=== PATIENT | female | born 1995 | race African-American/Black ===

== ENCOUNTER 2017-03-05 08:52 | Emergency (ER) | payer MEDICAID ==
[2010-11-18 09:21] VITALS: BMI 27.3
[2017-03-05 09:19] LABS: BASOPHILS 0.1 % (0.0-2.0); EOSINOPHILS 1.2 % (0-7); HEMATOCRIT 36.1 % (36.0-48.0); HEMOGLOBIN 11.5 g/dL (12-16); IMMATURE GRANULOCYTES 0.2 % (0-5); LYMPHOCYTES 19.5 % (15-50); MCH 28.8 pg (26.0-34.0); MCHC 31.9 g/dL (31.0-37.0); MCV 90.3 fL (80.0-100.0); MEAN PLATELET VOLUME 10.7 fL (7.4-10.4); MONOCYTES 8.7 % (2-11); NEUTROPHILS 70.3 % (40-80); RDW 12.2 % (11.5-14.5); WBC 8.4 10x3/uL (4.8-10.8)
[2017-03-05 09:21] LABS: PLATELET COUNT 253 10x3/uL (130-400)
[2017-03-05 09:36] LABS: HCG SERUM POSITIVE (NEGATIVE)
[2017-03-05 09:48] LABS: ALBUMIN 3.6 g/dL (3.4-5.0); ALKALINE PHOSPHATASE 70 U/L (46-116); ALT (SGPT) 16 U/L (10-68); CALC OSMOLALITY 269 mosm/kg (275-300); CALCIUM 9.1 mg/dL (8.5-10.1); CARBON DIOXIDE 23.3 mmol/L (21.0-32.0); CHLORIDE - SERUM 102 mmol/L (98-107); CREATININE - SERUM 0.5 mg/dL (0.6-1.3); GLUCOSE 91 mg/dL (74-106); POTASSIUM - SERUM 3.8 mmol/L (3.5-5.1); PROTEIN - SERUM 7.4 g/dL (6.4-8.2); SODIUM 136 mmol/L (136-145); UREA NITROGEN 6 mg/dL (7-18); eGFR NON AFRICAN AMERICAN > 90 mL/min (90-120)
[2017-03-05 10:02] LABS: APPEARANCE TURBID (CLEAR); COLOR RED (YELLOW); GLUCOSE NEGATIVE (NEGATIVE); KETONE NEGATIVE (NEGATIVE); LEUKOCYTE ESTERASE 1+ (NEGATIVE); PROTEIN 1+ mg/dL (NEGATIVE); SPECIFIC GRAVITY 1.005 (1.005-1.020); UROBILINOGEN NORMAL (NORMAL)
[2017-03-05 10:05] LABS: BILIRUBIN NEGATIVE (NEGATIVE); NITRITE NEGATIVE (NEGATIVE)
[2017-03-05 10:08] LABS: RED CELLS - URINE >50 /hpf (0-5)
[2017-03-05 10:09] LABS: BACTERIA MODERATE /hpf (NONE SEEN)
== END 2017-03-05 12:00 | disposition home or self-care (01) ==
LOC: D.ER 08:52
PROVIDERS: Emergency Medicine
DX: O20.9 Hemorrhage in early pregnancy, unspecified (principal); Z3A.01 Less than 8 weeks gestation of pregnancy

== ENCOUNTER 2017-04-10 12:19 | Emergency (ER) | payer MEDICAID ==
[2010-11-18 09:21] VITALS: BMI 27.3
[2017-04-10 12:45] LABS: BASOPHILS 0.1 % (0-2); EOSINOPHILS 0.6 % (0-7); HEMATOCRIT 35.8 % (36.0-48.0); HEMOGLOBIN 11.3 g/dL (12-16); IMMATURE GRANULOCYTES 0.2 % (0-5); LYMPHOCYTES 16.3 % (15-50); MCHC 31.6 g/dL (31.0-37.0); MCV 91.8 fL (80.0-100.0); MEAN PLATELET VOLUME 10.8 fL (7.4-10.4); MONOCYTES 7.2 % (2-11); NEUTROPHILS 75.6 % (40-80); PLATELET COUNT 258 10x3/uL (130-400); RDW 12.4 % (11.5-14.5); WBC 10.1 10x3/uL (4.8-10.8)
[2017-04-10 13:08] LABS: ALBUMIN 3.7 g/dL (3.4-5.0); ALKALINE PHOSPHATASE 67 U/L (46-116); ALT (SGPT) 15 U/L (10-68); BILIRUBIN - TOTAL 0.57 mg/dL (0.2-1.3); CALC OSMOLALITY 263 mosm/kg (275-300); CALCIUM 9.3 mg/dL (8.5-10.1); CARBON DIOXIDE 23.3 mmol/L (21.0-32.0); CHLORIDE - SERUM 102 mmol/L (98-107); CREATININE - SERUM 0.5 mg/dL (0.6-1.3); GLUCOSE 78 mg/dL (74-106); POTASSIUM - SERUM 3.7 mmol/L (3.5-5.1); PROTEIN - SERUM 7.4 g/dL (6.4-8.2); SODIUM 134 mmol/L (136-145); UREA NITROGEN 5 mg/dL (7-18); eGFR NON AFRICAN AMERICAN > 90 mL/min (90-120)
[2017-04-10 13:09] LABS: HCG SERUM POSITIVE (NEGATIVE)
[2017-04-10 13:22] LABS: APPEARANCE HAZY (CLEAR); BACTERIA MODERATE /hpf (NONE SEEN); BILIRUBIN NEGATIVE (NEGATIVE); COLOR YELLOW (YELLOW); GLUCOSE NEGATIVE (NEGATIVE); KETONE NEGATIVE (NEGATIVE); LEUKOCYTE ESTERASE 1+ (NEGATIVE); MUCUS <1+ /lpf (NONE SEEN); NITRITE NEGATIVE (NEGATIVE); PROTEIN NEGATIVE (NEGATIVE); RED CELLS - URINE OCC /hpf (0-5)
== END 2017-04-10 15:17 | disposition home or self-care (01) ==
LOC: D.ER 12:19
PROVIDERS: Emergency Medicine
DX: O23.41 Unspecified infection of urinary tract in pregnancy, first trimester (principal); R10.9 Unspecified abdominal pain

== ENCOUNTER 2017-05-16 09:09 | Emergency (ER) | payer MEDICAID ==
[2010-11-18 09:21] VITALS: BMI 27.3
[2017-05-16 09:57] LABS: BASOPHILS 0 % (0-2); HEMATOCRIT 32.7 % (36.0-48.0); HEMOGLOBIN 10.5 g/dL (12-16); IMMATURE GRANULOCYTES 0.3 % (0-5); MCH 29.7 pg (26.0-34.0); MCHC 32.1 g/dL (31.0-37.0); MCV 92.6 fL (80.0-100.0); MONOCYTES 7.7 % (2-11); PLATELET COUNT 204 10x3/uL (130-400); RBC 3.53 10x6/uL (4.00-5.40); RDW 12.3 % (11.5-14.5); WBC 7.9 10x3/uL (4.8-10.8)
[2017-05-16 10:06] LABS: APPEARANCE HAZY (CLEAR); BACTERIA MODERATE /hpf (NONE SEEN); BILIRUBIN NEGATIVE (NEGATIVE); COLOR YELLOW (YELLOW); GLUCOSE NEGATIVE (NEGATIVE); KETONE NEGATIVE (NEGATIVE); LEUKOCYTE ESTERASE TRACE (NEGATIVE); MUCUS <1+ /lpf (NONE SEEN); NITRITE NEGATIVE (NEGATIVE); PROTEIN NEGATIVE (NEGATIVE); RED CELLS - URINE OCC /hpf (0-5); SPECIFIC GRAVITY 1.015 (1.005-1.020)
[2017-05-16 10:10] LABS: ALKALINE PHOSPHATASE 64 U/L (46-116); ALT (SGPT) 15 U/L (10-68); BILIRUBIN - TOTAL 0.65 mg/dL (0.2-1.3); CALC OSMOLALITY 267 mosm/kg (275-300); CARBON DIOXIDE 20.9 mmol/L (21.0-32.0); CHLORIDE - SERUM 104 mmol/L (98-107); CREATININE - SERUM 0.4 mg/dL (0.6-1.3); GLUCOSE 82 mg/dL (74-106); POTASSIUM - SERUM 3.8 mmol/L (3.5-5.1); PROTEIN - SERUM 7.1 g/dL (6.4-8.2); SODIUM 136 mmol/L (136-145); UREA NITROGEN 5 mg/dL (7-18); eGFR NON AFRICAN AMERICAN > 90 mL/min (90-120)
== END 2017-05-16 11:00 | disposition home or self-care (01) ==
LOC: D.ER 09:09
PROVIDERS: Emergency Medicine
DX: O99.019 Anemia complicating pregnancy, unspecified trimester (principal)

== ENCOUNTER 2017-05-17 16:10 | Emergency (ER) | payer MEDICAID ==
[2010-11-18 09:21] VITALS: BMI 27.3
[2017-05-17 19:22] LABS: BASOPHILS 0 % (0-2); EOSINOPHILS 0.6 % (0-7); HEMATOCRIT 33.1 % (36.0-48.0); HEMOGLOBIN 10.4 g/dL (12-16); IMMATURE GRANULOCYTES 0.3 % (0-5); LYMPHOCYTES 17.5 % (15-50); MCH 29.5 pg (26.0-34.0); MCHC 31.4 g/dL (31.0-37.0); MCV 93.8 fL (80.0-100.0); MEAN PLATELET VOLUME 11.4 fL (7.4-10.4); MONOCYTES 10.7 % (2-11); NEUTROPHILS 70.9 % (40-80); PLATELET COUNT 220 10x3/uL (130-400); RBC 3.53 10x6/uL (4.00-5.40); RDW 12.4 % (11.5-14.5); WBC 9.7 10x3/uL (4.8-10.8)
[2017-05-17 19:42] LABS: ALBUMIN 3.1 g/dL (3.4-5.0); ALKALINE PHOSPHATASE 73 U/L (46-116); ALT (SGPT) 16 U/L (10-68); BILIRUBIN - TOTAL 0.27 mg/dL (0.2-1.3); CALC OSMOLALITY 275 mosm/kg (275-300); CALCIUM 9.2 mg/dL (8.5-10.1); CARBON DIOXIDE 23.3 mmol/L (21.0-32.0); CHLORIDE - SERUM 104 mmol/L (98-107); CREATININE - SERUM 0.5 mg/dL (0.6-1.3); GLUCOSE 91 mg/dL (74-106); POTASSIUM - SERUM 3.7 mmol/L (3.5-5.1); PROTEIN - SERUM 6.8 g/dL (6.4-8.2); SODIUM 139 mmol/L (136-145); eGFR NON AFRICAN AMERICAN > 90 mL/min (90-120)
[2017-05-17 19:54] LABS: UREA NITROGEN 7 mg/dL (7-18)
== END 2017-05-17 21:59 | disposition home or self-care (01) ==
LOC: D.ER 16:10
PROVIDERS: Emergency Medicine
DX: O26.892 Other specified pregnancy related conditions, second trimester (principal); Z3A.18 18 weeks gestation of pregnancy; R10.2 Pelvic and perineal pain

== ENCOUNTER → 2017-08-20 21:04 | Outpatient (CLI) | payer MEDICAID ==
[2010-11-18 09:21] VITALS: BMI 27.3
== END | disposition home or self-care (01) ==
LOC: D.LDO 21:04
DX: O26.893 Other specified pregnancy related conditions, third trimester (principal); Z3A.31 31 weeks gestation of pregnancy; R10.9 Unspecified abdominal pain; M54.9 Dorsalgia, unspecified; M79.605 Pain in left leg

== ENCOUNTER → 2017-09-11 16:36 | Outpatient (CLI) | payer MEDICAID ==
[2010-11-18 09:21] VITALS: BMI 27.3
[2017-09-11 17:08] LABS: APPEARANCE SLT CLOUDY (CLEAR); BILIRUBIN NEGATIVE (NEGATIVE); COLOR YELLOW (YELLOW); GLUCOSE NEGATIVE (NEGATIVE); KETONE NEGATIVE (NEGATIVE); NITRITE NEGATIVE (NEGATIVE); PROTEIN NEGATIVE (NEGATIVE); SPECIFIC GRAVITY 1.015 (1.005-1.020); UROBILINOGEN NORMAL (NORMAL)
[2017-09-11 17:10] LABS: BACTERIA FEW /hpf (NONE SEEN); EPITHELIAL CELLS 0-5 /hpf (0-5)
[2017-09-11 17:11] LABS: CALCIUM OXALATE CRYSTALS 25-50 /hpf (NONE SEEN)
== END | disposition home or self-care (01) ==
LOC: D.LDO 16:36
PROVIDERS: Obstetrics & Gynecology
DX: O26.899 Other specified pregnancy related conditions, unspecified trimester (principal); M54.5 Low back pain

== ENCOUNTER 2019-04-17 10:23 | Emergency (ER) | payer MEDICAID ==
[2010-11-18 09:21] VITALS: BMI 27.3
== END 2019-04-17 11:27 | disposition left against medical advice (07) ==
LOC: D.ER 10:23
DX: R07.81 Pleurodynia (principal)

== ENCOUNTER 2020-02-04 12:18 | Outpatient (CLI) | payer MEDICAID ==
[2020-01-02 09:49] VITALS: BMI 22.1
[~2020-02-04 12:18] MED LIST: FLAGYL500 MG PO; KEFLEX500 MG PO; MACROBID100 MG PO; PHENERGAN25 M1 PO
== END 2020-02-04 15:20 | disposition home or self-care (01) ==
LOC: D.LDO 12:18
PROVIDERS: ATTEND Obstetrics & Gynecology
DX: O26.899 Other specified pregnancy related conditions, unspecified trimester (principal); R10.9 Unspecified abdominal pain; R51 Headache

== ENCOUNTER 2020-06-12 10:48 | Outpatient (CLI) | payer MEDICAID ==
[2020-01-02 09:49] VITALS: BMI 22.1
== END 2020-06-12 12:22 | disposition home or self-care (01) ==
LOC: D.LDO 10:48
PROVIDERS: ATTEND Obstetrics & Gynecology
DX: O26.893 Other specified pregnancy related conditions, third trimester (principal); Z3A.33 33 weeks gestation of pregnancy; R10.9 Unspecified abdominal pain

== ENCOUNTER 2020-06-16 13:00 | Outpatient (CLI) | payer MEDICAID ==
[2020-01-02 09:49] VITALS: BMI 22.1
[2020-06-16 14:53] LABS: BACTERIA FEW /hpf (NEGATIVE); BILIRUBIN NEGATIVE (NEGATIVE); EPITHELIAL CELLS 0-5 /hpf (0-5); GLUCOSE NEGATIVE (NEGATIVE); KETONE MODERATE mg/dL (NEGATIVE); NITRITE NEGATIVE (NEGATIVE); RED CELLS - URINE RARE /hpf (0-5); UROBILINOGEN NORMAL (NORMAL); WHITE CELLS - URINE 0-5 /hpf (NEGATIVE)
[2020-06-16 15:09] LABS: UDS - AMPHET NEGATIVE QUAL (NEGATIVE); UDS - BARB NEGATIVE QUAL (NEGATIVE); UDS - BENZO NEGATIVE QUAL (NEGATIVE); UDS - COCAINE NEGATIVE QUAL (NEGATIVE); UDS - OPIATE NEGATIVE QUAL (NEGATIVE); UDS - PCP NEGATIVE QUAL (NEGATIVE); UDS - THC POSITIVE QUAL (NEGATIVE)
== END 2020-06-16 13:30 | disposition home or self-care (01) ==
LOC: D.LDO 13:00
PROVIDERS: ATTEND Obstetrics & Gynecology
DX: O26.899 Other specified pregnancy related conditions, unspecified trimester (principal); Z3A.00 Weeks of gestation of pregnancy not specified; M54.9 Dorsalgia, unspecified